=== PATIENT | male | born 1925 | race Caucasian/White ===

== ENCOUNTER 2017-09-16 09:52 | Inpatient (IN) | payer OTHER ==
[~2017-09-16] VITALS: Ht 147.3 cm; Wt 55.1 kg
[2017-09-16] MEDS ORDERED: OSTERA TABLET1 EACH PO (10:35)
[2017-09-16] MEDS ORDERED: KLOR-CON M2020 MEQ PO (10:36)
[2017-09-16] MEDS ORDERED: ESCITALOPRAM10 M1 PO (10:36)
[2017-09-16] MEDS ORDERED: MIRAPEX0.25 MG PO (10:36)
[2017-09-16] MEDS ORDERED: ALLOPURINOL100 MG PO (10:37)
[2017-09-16] MEDS ORDERED: NAMENDA10 M2 PO (10:37)
[2017-09-16] MEDS ORDERED: SYNTHROID0.05 MG PO (10:37)
[2017-09-16] MEDS ORDERED: LOVASTATIN40 MG PO (10:38)
[2017-09-16] MEDS ORDERED: MYRBETRIQ25 MG PO (10:38)
[2017-09-16] MEDS ORDERED: ARICEPT5 MG PO (10:38)
[2017-09-16 11:24] LABS: BASOPHIL % 0.5 % (0-2)
[2017-09-16 11:27] LABS: PLATELET COUNT 407 x10^3mcL (130-400); RED CELL DISTRIBUTION WIDTH 14.9 % (11.5-14.5)
[2017-09-16 11:52] LABS: CALCIUM 8.4 mg/dL (8.5-10.1); CARBON DIOXIDE 24.3 mmol/L (21-32); CHLORIDE SERUM 103 mmol/L (98-107); CREATININE SERUM 1.2 mg/dL (0.7-1.3); GLUCOSE SERUM 77 mg/dL (74-106); POTASSIUM SERUM 4.8 mmol/L (3.5-5.1); SODIUM SERUM 136 mmol/L (136-145)
[2017-09-16 11:56] LABS: ALKALINE PHOSPHATASE 91 U/L (46-116); ALT/SGPT 25 U/L (16-63); AST/SGOT 21 U/L (15-37); BILIRUBIN TOTAL 0.3 mg/dL (0.20-1.00); LIPASE 312 IU/L (73-393); TOTAL PROTEIN, SERUM 6.2 g/dL (6.4-8.2)
[2017-09-16 11:59] LABS: ALBUMIN 2.5 g/dL (3.4-5.0)
[2017-09-16 12:04] LABS: microscopic required? NO
[2017-09-16 12:16] LABS: urine erythrocyte NEGATIVE (NEGATIVE)
[2017-09-16 15:19] VITALS: BP 165/71
[2017-09-16 15:36] VITALS: BP 165/71
[2017-09-16 15:41] VITALS: Ht 147.3 cm; Wt 55.1 kg
[2017-09-16 21:29] VITALS: BP 95/52
[2017-09-17 05:05] VITALS: BP 140/77
[2017-09-17 08:09] VITALS: BP 152/69
[2017-09-17 13:13] VITALS: BP 153/75
[2017-09-17 17:37] VITALS: BP 125/60
[2017-09-17 21:45] VITALS: BP 100/65
[2017-09-18 06:00] VITALS: BP 120/73
[2017-09-18 07:34] LABS: CALCIUM 8.3 mg/dL (8.5-10.1); CARBON DIOXIDE 22.3 mmol/L (21-32); CHLORIDE SERUM 106 mmol/L (98-107); CREATININE SERUM 0.9 mg/dL (0.7-1.3); GLUCOSE SERUM 94 mg/dL (74-106); MAGNESIUM 1.8 mg/dL (1.8-2.4); POTASSIUM SERUM 3.8 mmol/L (3.5-5.1); SODIUM SERUM 137 mmol/L (136-145)
[2017-09-18 08:41] LABS: PLATELET COUNT 183 x10^3mcL (130-400); RED CELL DISTRIBUTION WIDTH 16.8 % (11.5-14.5)
[2017-09-18 09:06] VITALS: BP 144/62
[2017-09-18 14:37] LABS: ATYPICAL LYMPH 1 %; BAND NEUTROPHIL 0 % (0-10); BASOPHIL 0 % (0-2); MONOCYTE 12 % (0-7); SEGMENTED NEUTROPHILS 75 % (37-75)
[2017-09-18 14:38] LABS: PLATELET MORPHOLOGY PLATELETS INCREASED; rbc morphology (normal/abnorm) ABNORMAL (NORMAL)
[2017-09-18 17:24] VITALS: BP 153/83
[2017-09-18 22:38] VITALS: BP 98/66
[2017-09-19 06:39] VITALS: BP 134/74
[2017-09-19 15:30] VITALS: BP 154/72
[2017-09-19 16:48] VITALS: BP 143/70
[2017-09-19 22:18] VITALS: BP 108/69
[2017-09-20 05:38] VITALS: BP 161/76
[2017-09-20 07:18] LABS: BASOPHIL % 0.3 % (0-2); CARBON DIOXIDE 21.9 mmol/L (21-32); CHLORIDE SERUM 108 mmol/L (98-107); CREATININE SERUM 0.9 mg/dL (0.7-1.3); GLUCOSE SERUM 83 mg/dL (74-106); MAGNESIUM 1.6 mg/dL (1.8-2.4); PHOSPHOROUS 2.8 mg/dL (2.5-4.9); PLATELET COUNT 361 x10^3mcL (130-400); POTASSIUM SERUM 3.5 mmol/L (3.5-5.1); SODIUM SERUM 139 mmol/L (136-145)
[2017-09-20 10:00] VITALS: BP 142/68
[2017-09-20 15:57] VITALS: BP 142/68
== END 2017-09-20 17:33 | DRG 884 ==
LOC: ED 09:52 → DU 13:55 → MU 13:55 → DU 15:13 → MU 09-19 12:36
PROVIDERS: Emergency Medicine; Family Medicine; Student in an Organized Health Care Education/Training Program
DX: F01.50 Vascular dementia, unspecified severity, without behavioral disturbance, psychotic disturbance, mood disturbance, and anxiety (principal); G93.41 Metabolic encephalopathy; N17.0 Acute kidney failure with tubular necrosis; E43 Unspecified severe protein-calorie malnutrition; M50.30 Other cervical disc degeneration, unspecified cervical region; D47.3 Essential (hemorrhagic) thrombocythemia; D53.9 Nutritional anemia, unspecified; E83.42 Hypomagnesemia; F41.9 Anxiety disorder, unspecified; G25.81 Restless legs syndrome; M10.9 Gout, unspecified; E03.9 Hypothyroidism, unspecified; E78.5 Hyperlipidemia, unspecified; Z66 Do not resuscitate; Z51.5 Encounter for palliative care
CPT/HCPCS: 87804; 97110-GP; 97116-GP; 97530-GP; J7030; Q0092